=== PATIENT | female | born 1960 | race Caucasian/White ===

== ENCOUNTER 2018-04-25 08:58 | Emergency (ER) | payer OTHER ==
[~2018-04-25] VITALS: Ht 154.9 cm; Wt 86.2 kg
[~2018-04-25 08:58] MED LIST: AMLODIPINE BESYL5 M1 PO; CARVEDILOL12.5 MG PO; DYAZIDE 37.5-21 EACH PO; LIPITOR 20 MG T20 M1 PO; PREDNISONE 10 M10 MG PO; PRINIVIL10 MG PO; VENTOLIN HFA 1818 GM INH
[2018-04-25] MEDS ORDERED: TESSALON PERLE100 MG PO (10:11)
[2018-04-25 10:24] VITALS: BP 116/70
== END 2018-04-25 10:25 | disposition home or self-care (01) ==
LOC: M.ERS 08:58
DX: J06.9 Acute upper respiratory infection, unspecified (principal); I10 Essential (primary) hypertension; J45.909 Unspecified asthma, uncomplicated; Z88.5 Allergy status to narcotic agent; Z88.8 Allergy status to other drugs, medicaments and biological substances